=== PATIENT | female | born 1950 | race Caucasian/White ===

== ENCOUNTER 2018-03-09 06:01 | Inpatient (IN) | payer OTHER, SELFPAY ==
[2018-02-27 09:47] VITALS: BMI 20.6
[2018-03-09] VITALS (15 sets, daily range): BP systolic 85–149; BP diastolic 47–82; PULSE 16–77; RESP 12–97; TEMP 36.2–37; O2SAT 94–100; BMI 20.6
--- NOTE | 2018-03-09 | DI.RAD.S_ITS ---
PROCEDURE: XR HIP W PEL IF DONE RT 2V INDICATIONS: total rt hip arthroplasty TECHNIQUE: Fluoroscopic images were obtained during an operative procedure and submitted for interpretation following the completion of the procedure. COMPARISON: None. FINDINGS: These fluoroscopic images were performed for intraoperative localization. On these images, right hip arthroplasty hardware is placed. No kevin intraoperative complication is seen. Please correlate with intraoperative findings. IMPRESSION: Normal intraoperative examination. Dictated by: Corey Lewis M.D. on 03/09/2018 at 10:33 Approved by: Corey Lewis M.D. on 03/09/2018 at 10:34
--- NOTE | 2018-03-09 06:00 | DI.RAD.S_ITS ---
PROCEDURE: XR HIP W PEL IF DONE RT 2V INDICATIONS: prosthesis placement TECHNIQUE: 2 view(s) of the hip acquired. COMPARISON: [facility], CR, XR PELVIS WITH LATERAL HIP RIGHT, 11/04/2017, 12:00. [facility], CR, XR HIP W PEL IF DONE RT 2V, 03/09/2018, 8:22. FINDINGS: Bones: Patient is status post right hip arthroplasty, with hardware components in expected positions. The hip joint appears congruent. The visualized bony structures appear intact. Soft tissues: Overlying postoperative changes are noted. No suspicious soft tissue densities. IMPRESSION: Right hip prosthesis in anatomic alignment. Dictated by: Alma Rojo M.D. on 03/09/2018 at 17:05 Approved by: Alma Rojo M.D. on 03/09/2018 at 17:06
[2018-03-09] MEDS: LACTATED RINGERS 1,000 ML 42 ML IV ×2 (06:55→11:09)
[2018-03-09] MEDS: VANCOMYCIN 1,000 MG/200 ML FROZ.PIGGY 200 MG IV (06:55)
[2018-03-09] MEDS: ACETAMINOPHEN 325 MG TABLET 975 MG PO ×3 (07:07→20:28)
[2018-03-09] MEDS: CELECOXIB 200 MG CAPSULE PO (07:08)
[2018-03-09] MEDS: PREGABALIN 75 MG CAPSULE PO (07:08)
[2018-03-09] MEDS: CEFAZOLIN 2 GM/100 ML FROZ.PIGGY IV ×3 (08:02→23:51)
--- NOTE | 2018-03-09 08:06 | PM.PREOP ---
Pre-operative Note Interval Note Pre-op Check: Yes History & Physical Reviewed by Physician and Yes Exam Performed Changes: No
--- NOTE | 2018-03-09 08:07 | PM.OP.1 ---
Operative Date/Time/Diagnoses Date of procedure: 03/09/18 Time of procedure: 10:41 Pre-op diagnosis: right hip oa Post-op diagnosis: same Procedure & Clinicians Procedure: right total hip arthroplasty Same procedure as scheduled: Yes Indications: severe right hip OA Surgeon: Yumiko Jerome Medical Artist: Logan Monroy Anesthesia Type: General and Spinal Operative Notes Findings: severe right hip OA, adequate stability Closure Type: primary Specimen(s): none sent Implants & Drains: jerome and nephew R3 50, anthology standard offset 6, -3 x 32 Estimated Blood Loss (mL): 250 Blood products transfused: none Procedure in detail: The patient was brought to the operating room. Patient was carefully positioned in the supine position. Time-out was performed and antibiotics were given. Anesthesia was induced. She was positioned in the on the table in order to allow hyperextension of the hip. Bilateral lower extremities were prepped and draped in a standard sterile fashion. An anterior right hip incision was made 1 fingerbreadth lateral to the anterior superior iliac spine and extended distally towards the greater trochanter. Dissection was carried out through skin and subcutaneous tissues. The skin and subcutaneous tissues were carefully injected with Lidocaine with epi. Superficial hemostasis was achieved. The fascia over the tensor fascia lalo was defined and incised with a knife. Two Allis clamps were used to grasp the fascia. Tensor fascia lalo was retracted laterally. A gelpi retractor was placed. Dissection was carried out down along the neck. The circumflex vessels were carefully identified and cauterized with the Aqua Mantis. There was good visualization of the femoral neck. A Cobra was placed superior to the neck and the gluteus fibers were carefully stripped from that superior aspect of the capsule. A 2nd retractor was placed along the inferior aspect of the neck. The rectus insertion along the capsule was partially released. A 3rd retractor that was then gently placed over the rim of the acetabulum under the rectus. Capsule was carefully incised and released from the intertrochanteric line circumferentially superior to the mid sagittal line and inferiorly to the mid sagittal line until the lesser trochanter was palpable. A tag stitch was placed both in the superior and inferior limb of the capsular insertion. Along the acetabulum capsule was also released up to the mid sagittal 12:00 position. A portion of the labrum was resected. A saw was used to perform an osteotomy at the level of the intertrochanteric line and the junction of the superior femoral neck leaving approximately 1 finger breath of residual inferior neck above the lesser trochanter. A 2nd cut was made along the femoral neck at the base of the head and a napkin ring of neck was removed. Corkscrew was placed in the femoral head and the head was removed without difficulty. Retractors were then repositioned around the acetabulum. Residual labrum was resected and additional osteophytes were removed. A reamer that was 4 mm below the templated size was placed by hand in the acetabulum and it was reamed to centralize the acetabulum. It was then reamed up to 2 under the templated size and fluoroscopy was brought in to confirm the position of the reaming and depth of reaming. I reamed 1 under the anticipated size and touched the rim with line to line reaming. A trial cup was placed and noted that it was appropriately sized and fluoroscopy confirmed position and depth. The component was open and inserted without difficulty fluoroscopic imaging was used to confirm that the cup had been adequately seated and was well positioned. A single screw was used to supplement fixation. Neutral poly trial liner was placed. The cup was tested and noted to be stable. Attention was then directed to the femur. The femur was gently hyperextended additional capsular release was performed as needed in order to allow adequate visualization of the proximal femur with elevation of the femur. Patient was placed in a hyperextended slightly abducted position with maximum external rotation. Box osteotome was used to check for any residual neck as well as sclerotic bone along the trochanter. [place] pepper was placed in the femur. Additional broaching was performed. Canal finder was used to determine the alignment of the canal and position. Size 1 broach was placed. The canal was then appropriately broached up to the templated size as long as there was adequate stability of the broach and serial advancement of the broach without excessive impingement. Specific attention was directed at avoiding varus attempting to direct the distal aspect of the broach more anteriorly and avoiding excessive anteversion. Trial reduction showed acceptable range of motion, good stability, no posterior impingement, rastafarian of leg length and appropriate lateral shuck. I also hyperflexed the hip and checked that there was no impingement anteriorly and there was good stability with flexion, abduction and internal rotation. Final neutral poly was placed without difficulty. Marcaine and Exparel were injected.. The stem was placed without difficulty. Repeat trial reduction and x-ray showed acceptable overall position, length, and no evidence of the femoral fracture. Final head was placed. Wound was meticulously irrigated with normal saline. The hip was reduced and additional Exparel and Marcaine were injected. The capsule was closed with interrupted nonabsorbable sutures. The fascia of the tensor was closed with interrupted and running Vicryl. No drain was placed. Any tensor fascia lalo muscle that appeared to be contused or injured which was a minimal amount was carefully resected. Capsule around the tensor was injected with Exparel and Marcaine. The skin was closed with barbed stitches for the subcutaneous tissue and skin. We also used surgical glue. The wound was dressed sterilely. Brief Betadine soak was also used and was meticulously irrigated with normal saline. Patient was transferred to recovery room in satisfactory condition. Complications: none Condition: stable Disposition: Acute Care Plan for aftercare: The patient will be maintained on a standard total hip replacement protocol with weight bearing as tolerated and anterior hip precautions. The patient will receive Aspirin and sequential compression devices for DVT prophylaxis. The patient will be discharged home when safe for the home environment.
[2018-03-09] MEDS: BUPIVACAINE 0.25% W/ EPI VIAL 50 ML INJ (08:55)
[2018-03-09] MEDS: LIDOCAINE 1% W/EPI INJ 20 ML INJ (08:56)
[2018-03-09] MEDS: BUPIVACAINE LIPOSOME 266 MG/20 ML VIAL INJ (08:57)
--- NOTE | 2018-03-09 08:58 | SUR.OPER ---
Supine, head on pillow, torso on pink pad positioner. Iliac crest at flex of foot end of table. Gel roll under operative hip. Both arms secured on arm boards <90 degrees abduction.
[2018-03-09] MEDS: LACTATED RINGERS 1,000 ML 125 ML IV ×2 (13:23→21:31)
--- NOTE | 2018-03-09 15:00 | PT.IIE ---
Current Diagnoses Unilateral post-traumatic osteoarthritis, right hip (03/09/18) Pain in right hip (03/09/18) Surgery Performed Operation Date: 03/09/18 07:45 Actual Procedures p Total Hip Arthroplasty/Anterior Approach(Right) - Yumiko Manzano MD Surgical History (Last Updated 02/27/18 @ 10:06 by Shayy Chen, RN) History of bilateral tubal ligation (Acute) History of tonsillectomy (Acute) Medical History (Last Updated 02/27/18 @ 10:29 by Shayy Chen, RN) Graves disease (Acute) Hip pain, right (Acute) Hyperthyroidism (Acute) Murmur (Acute) Post menopausal problems (Acute) Primary localized osteoarthrosis of pelvic region (Acute) Psoriasis (Acute) Physical Therapy Inpatient Evaluation/Re-Eval M1 PT/OT-IP Prior Functional Status Start: 03/09/18 17:13 Freq: NEEDED Status: Active Protocol: Document 03/09/18 15:00 AB (Rec: 03/09/18 17:25 AB [id number]) Medical Review Prior Functional Status Medical History Reviewed Yes Communication able to make needs known Mobility and Gait stated that she is indpeendent with all moilities and ambulation wihtout AD indoors but uses a walking stick for outdoor mobility Social History Household Members spouse Living Arrangements House Number of Floors (Floors) One Floor Number of Stairs To Enter/Railing? 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 PT-IP Current Condition Start: 03/09/18 17:13 Freq: NEEDED Status: Active Protocol: Document 03/09/18 15:00 AB (Rec: 03/09/18 17:25 AB [id number]) Physical Therapy Current Condition Current Condition Evaluation Date 03/09/18 Treatment Diagnosis s/p R ALYSSA anterior approach Onset Date 03/09/18 Precautions Anterior Hip Precautions No Hip Extension No Hip External Rotation Weight Bearing Status Weight Bearing Status Weight Bear as Tolerated M3 PT-IP Subjective Start: 03/09/18 17:13 Freq: NEEDED Status: Active Protocol: Document 03/09/18 15:00 AB (Rec: 03/09/18 17:25 AB [id number]) Subjective Physical Therapy Visit Type Type Initial Evaluation Visit Start Time 15:00 Visit Stop Time 16:07 Total Visit Minutes 67 Number of SAMPLER PICKUP Visits 0 Physical Therapy Visit Comments Patient Comments pt agreeable to do PT Therapy Pain Assessment Pain When Pain Assessed At Rest Pain Present Pain Present Pain Reported Location Right Hip Intensity 2 Scale Used Numeric (1 - 10) Description Throbbing Pain Management Techniques Apply Cold Re-positioning M4 PT-IP Mobility and Gait Start: 03/09/18 17:13 Freq: NEEDED Status: Active Protocol: Document 03/09/18 15:00 AB (Rec: 03/09/18 17:25 AB [id number]) PT-Bed Mobility Assessment Supine to Sit Supine to Sit Standby Assistance Sit to Supine Sit to Supine Minimal Assistance PT-Transfer Assessment Sit to and From Stand Sit to and from Stand Contact Guard Assistance Equipment Transfer Assistive Device Gait Belt Front Wheeled Walker Orthotic/Prosthetic Devices or Brace: No Transfers Transfer Destination Toilet Transfer Technique pt ambulated from bed to the toilet using FWW Transfer Ability Level of Assist Contact Guard Assistance Gait Assessment Gait Gait Assistance Required: Contact Guard Assist Distance (Feet) 10 Able to Maintain Weight Bearing Status Yes During Gait Assistive Devices Assistive Device Gait Belt Front Wheeled Walker Factors Limiting Gait Function Factors Limiting Gait Function Decreased Activity Tolerance Decreased Strength Limited Range of Motion Pain Poor Balance Comments Gait Comments pt ambulated 10 ft x 2 using FWW CGA. pt with c/o dizziness limiting activity. BP prior to tx sesison: 104/59 BP sitting on chair after ambulation: 94/70 PT-Balance Assessment Sitting Balance and Reactions Static Sitting Balance Ability Good Dynamic Sitting Balance Ability Good Standing Balance and Reactions Static Standing Balance Ability Fair Dynamic Standing Balance Ability Fair Device Used FWW M5 PT-IP Objective Assessments Start: 03/09/18 17:13 Freq: NEEDED Status: Active Protocol: Document 03/09/18 15:00 AB (Rec: 03/09/18 17:25 AB [id number]) Orientation Orientation/Cognition Level of Alertness Alert Orientation Name Age Birthday Month Date Year Day of Week Place Situation Safety Awareness Understands Safety Issues Memory Description Short Term Impaired Gross Range of Motion Lower Extremity ROM Assessment Within Functional Limits Strength Lower Extremity Strength Assessment Right Impaired Hip 3+/5 Knee 4-/5 Sensation Assessment Sensation Gross Sensation WNL Muscle Tone Muscle Tone WNL Yes M6 PT-IP Treatment Start: 03/09/18 17:13 Freq: NEEDED Status: Active Protocol: Document 03/09/18 15:00 AB (Rec: 03/09/18 17:25 AB [id number]) Physical Therapy Treatment Exercises Exercises Ankle Pumps Education Education Provided Precautions Weight Bearing Status Post-Op Packet Safety M7 PT-IP Assessment and Plan Start: 03/09/18 17:13 Freq: NEEDED Status: Active Protocol: Document 03/09/18 15:00 AB (Rec: 03/09/18 17:25 AB [id number]) PT Summary Assessment and Plan Potential Rehabilitation Potential Good Status of Condition at Evaluation Stable Summary Impairments Pain ROM Strength Balance Coordination Sensation Bed Mobility Transfers Gait Activity Tolerance Assessment Summary pt requiring CGA with transfers and ambulation. pt plans to go home with spouse to assist her. caregiver training will be conducted as well as stair climbing training prior to d/c. pt stated that she is set up for outpt PT. Goals Bed Mobility Goal Standby Assistance Transfer Goal Standby Assistance Front Wheeled Walker Gait Goal Standby Assistance Front Wheel Walker Gait Distance 150 Days to Meet Goals 3 Frequency of Treatment Frequency Of Treatment Twice a Day Treatment Plan Physical Therapy Treatment Plan Bed Mobility Training Transfer Training Gait Training Therapeutic Exercise Balance Retraining Post Op Education Discharge Planning Hot or Cold Pack Neuromuscular Re-ed Coordination Retraining Manual Therapy Recommendations To Nursing Amount of Assist Needed 1 Person Assist Discharge Recommendations PT Discharge Recommendations Home with Assistance Outpatient PT
[2018-03-09] MEDS: ONDANSETRON 4 MG/2 ML INJ IV (16:49)
[2018-03-09] MEDS: ASPIRIN EC 81 MG TABLET PO (20:28)
--- NOTE | 2018-03-10 | PC.NURSE ---
Addendum entered by Aliya Valentine R.N. 03/10/18 06:23: States pain is currently throbbing with severity of 5/10 after being up to bathroom. Did not want to take Oxycodone or Ibuprofen so medicated with scheduled 0900 Tylenol and ice applied to hip. Original Note: Patient is alert and oriented. Breath sounds diminished but CTA with RA sat of 97%. HRR. Denies nausea (earlier nausea/emesis resolved). BT present and states she already had BM since return from surgery. Denies dysuria, frequency, urgency or incontinence. Dressing to anterior right hip is CDI. Ice pack applied for comfort. Patient denies any current pain. CMS is intact. Wearing bilateral SCD's. Fall risk score is moderate; bed alarm on for night.
[2018-03-10] MEDS: OXYCODONE IR 5 MG TABLET PO ×2 (01:09→10:37)
[2018-03-10 05:44] LABS: Hematocrit 29.8 % (36-46); Hemoglobin 10.4 g/dL (12.0-16.0)
[2018-03-10 05:50] VITALS: BP 107/58; PULSE 73; RESP 16; TEMP 36.7; O2SAT 99
[2018-03-10] MEDS: ACETAMINOPHEN 325 MG TABLET 975 MG PO (06:21)
--- NOTE | 2018-03-10 07:35 | PM.DS.1 ---
History of Present Illness Date Patient Seen: 03/10/18 Chief complaint: total hip arthroplasty right [id number] Narrative: Patient was seen bedside status post right anterior total hip arthroplasty postop day 1. Patient is doing well, her pain is well controlled and she has been up and moving with physical therapy already. She is ready to go home. Discharge Providers Date of admission: 03/09/18 06:01 Consults: 03/09/18 12:40 Consult to Discharge Planning Routine Comment: Consult to Physical Therapy Evaluate & Treat Comment: anterior Physician Instructions: post op ALYSSA protocol Consult to Respiratory Therapy Evaluate & Treat Comment: Physician Instructions: Evaluate and treat Discharge provider: Adeola Jennings PA-C Summary Discharge Diagnosis: Right hip osteoarthritis Hospital Course: Patient was admitted to the hospital status post right anterior hip arthroplasty on 03/09/2018. Patient tolerated procedure well with no major complications. Patient was transferred to the acute care floor. The patient was seen by Physical therapy who recommend patient be discharged home with outpatient PT. Patient stable ready for discharge on 03/10/2018. Status at Discharge Cognitive/behavioral status at discharge: Alert oriented x4 Functional status at discharge: uses cane/walker Overall status at discharge: patient is progressing back to baseline Time Spent with Patient Less than 30 minutes Exam Vital Signs (past 8 hours): - 03/09/18 23:45 03/10/18 05:50 Temperature 98.1 F 98.0 F Pulse Rate 74 73 Respiratory Rate 16 16 Blood Pressure 133/63 107/58 L Pulse Oximetry 97 99 Fraction of Inspired Oxygen 21 Oxygen Delivery Method Room Air Oxygen Flow Rate 0 Narrative Exam Narrative: Well-developed well-nourished in no acute distress. Alert and oriented x3. Examination surgical dressing is clean dry and intact she is neurovascularly intact in the right lower extremity. She has full range of motion of the knee and ankle. Calf is soft and compressible. Objective Labs Result Diagrams: 03/10/18 05:24 Labs: Laboratory Results - last 24 hr 03/10/18 05:24 Hgb 10.4 L Hct 29.8 L Discharge Plan Discharge Plan Patient Disposition: Home Discharge Med Rec/Prescriptions Prescriptions: New acetaminophen 325 mg Tablet 975 mg PO TID Qty: 0 RF: 0 aspirin 81 mg Tablet,Delayed Release (Dr/Ec) 81 mg PO BID Qty: 0 RF: 0 docusate sodium 100 mg Capsule 100 mg PO BID Qty: 0 RF: 0 oxycodone 5 mg Tablet 5 mg PO Q4H PRN (Reason: Pain, Moderate (4-6)) Qty: 0 RF: 0 Continue methimazole [Tapazole] 5 mg Tablet 2.5 mg PO DAILY RF: 0 Provider Discharge Instructions Diet: Diet as Tolerated Activity: WBAT, follow anterior hip precautions, use walker until cleared by PT Cold/Heat Therapy: Apply ice at least 20 minutes at a time hourly while awake Skin/Wound/Dressing Care Report to your healthcare provider any signs of infection, such as:: chills, fever, night sweats, increased pain and unusual drainage Dressing: Keep dressing clean, dry, and intact. May shower but no soaking the incision. Visit Report/Discharge Packet Instructions: DI for Hip Replacement, Oxycodone Visit Report Forms: Stroke Signs & Symptoms Discharge Data Attending Provider: Yumiko Manzano Admit Date/Time: 03/09/18 06:01 Discharges patient from system. Discharge Date/Time: 03/10/18 11:01
[2018-03-10 08:34] VITALS: BP 108/63; PULSE 70; RESP 16; TEMP 36.5; O2SAT 99
[2018-03-10] MEDS: methIMAzole 5 MG TABLET 2.5 MG PO (09:49)
[2018-03-10] MEDS: IBUPROFEN 600 MG TABLET PO (09:49)
[2018-03-10] MEDS: ASPIRIN EC 81 MG TABLET PO (09:49)
[2018-03-10] MEDS: DOCUSATE 100 MG CAPSULE PO (09:49)
--- NOTE | 2018-03-10 10:40 | PT.IPTN ---
Current Diagnoses Unilateral post-traumatic osteoarthritis, right hip (03/09/18) Pain in right hip (03/09/18) Surgery Performed Operation Date: 03/09/18 07:45 Actual Procedures p Total Hip Arthroplasty/Anterior Approach(Right) - Yumiko Manzano MD Physical Therapy Treatment Note M2 PT-IP Current Condition Start: 03/09/18 17:13 Freq: NEEDED Status: Discharge Protocol: Document 03/09/18 15:00 AB (Rec: 03/09/18 17:25 AB [id number]) Physical Therapy Current Condition Current Condition Evaluation Date 03/09/18 Treatment Diagnosis s/p R ALYSSA anterior approach Onset Date 03/09/18 Precautions Anterior Hip Precautions No Hip Extension No Hip External Rotation Weight Bearing Status Weight Bearing Status Weight Bear as Tolerated M3 PT-IP Subjective Start: 03/09/18 17:13 Freq: NEEDED Status: Discharge Protocol: Document 03/10/18 10:40 GGD (Rec: 03/10/18 12:49 GGD [id number]) Subjective Physical Therapy Visit Type Type Treatment Note Visit Start Time 10:05 Visit Stop Time 10:35 Total Visit Minutes 30 Number of FENCE INSTALLER FOREMAN Visits 1 Physical Therapy Visit Comments Patient Comments Pt states that she feels ready to go home after stairs. Therapy Pain Assessment Pain When Pain Assessed At Rest Pain Present Pain Present Pain Reported Location Right Hip Intensity 1 Scale Used Numeric (1 - 10) Description Throbbing M4 PT-IP Mobility and Gait Start: 03/09/18 17:13 Freq: NEEDED Status: Discharge Protocol: Document 03/10/18 10:40 GGD (Rec: 03/10/18 12:49 GGD [id number]) PT-Transfer Assessment Sit to and From Stand Sit to and from Stand Contact Guard Assistance Equipment Transfer Assistive Device Gait Belt Front Wheeled Walker Orthotic/Prosthetic Devices or Brace: No Transfers Transfer Destination Toilet Wheelchair Gait Assessment Gait Gait Assistance Required: Contact Guard Assist Distance (Feet) 100 Able to Maintain Weight Bearing Status Yes During Gait Assistive Devices Assistive Device Gait Belt Front Wheeled Walker Factors Limiting Gait Function Factors Limiting Gait Function Decreased Activity Tolerance Decreased Strength Limited Range of Motion Pain Poor Balance Comments Gait Comments Pt need cues for hip precautions with turns and gait. Stair Climbing Assessment Evaluation Level of Assist On Stairs Contact Guard Assistance Devices Stair Climbing Assistive Devices Small Base Quad Cane Technique/Endurance Stair Climbing Direction Ascend and Descend Stair Climbing Technique Step to Step Number of Steps Climbed 3 Query Text: Stair Climbing Set # Repetitions (reps) 1 M5 PT-IP Objective Assessments Start: 03/09/18 17:13 Freq: NEEDED Status: Discharge Protocol: Document 03/09/18 15:00 AB (Rec: 03/09/18 17:25 AB [id number]) Orientation Orientation/Cognition Level of Alertness Alert Orientation Name Age Birthday Month Date Year Day of Week Place Situation Safety Awareness Understands Safety Issues Memory Description Short Term Impaired Gross Range of Motion Lower Extremity ROM Assessment Within Functional Limits Strength Lower Extremity Strength Assessment Right Impaired Hip 3+/5 Knee 4-/5 Sensation Assessment Sensation Gross Sensation WNL Muscle Tone Muscle Tone WNL Yes M6 PT-IP Treatment Start: 03/09/18 17:13 Freq: NEEDED Status: Discharge Protocol: Document 03/10/18 10:40 GGD (Rec: 03/10/18 12:49 GGD [id number]) Physical Therapy Treatment Exercises Exercises Ankle Pumps Gluteal Sets Quad Sets Heel Slides Supine Hip Abduction Education Education Provided Precautions M7 PT-IP Assessment and Plan Start: 03/09/18 17:13 Freq: NEEDED Status: Discharge Protocol: Document 03/10/18 10:40 GGD (Rec: 03/10/18 12:49 GGD [id number]) PT Summary Assessment and Plan Summary Assessment Summary Pt improving with mobility and gait. She had good pain control with weight bearing. She did need cues for hip precautions wiht gait and cues for safe stair ambulation. Frequency of Treatment Frequency Of Treatment Twice a Day Treatment Plan Physical Therapy Treatment Plan Bed Mobility Training Transfer Training Gait Training Therapeutic Exercise Balance Retraining Post Op Education Discharge Planning Hot or Cold Pack Neuromuscular Re-ed Coordination Retraining Manual Therapy Recommendations To Nursing Amount of Assist Needed 1 Person Assist Discharge Recommendations PT Discharge Recommendations Home with Assistance Outpatient PT
--- NOTE | 2018-03-10 10:58 | PC.NURSE ---
Day shift: Pt left unit in w/ [employer]IST Cindi and Pt's spouse to private car. They have ferry pass. Pt medicated for pain just prior to leaving. Paperwork signed and all questions answered. Pt has all personal belongings. FU appointment has been scheduled.
--- NOTE | 2018-03-11 11:17 | CM.IDA ---
Late Entry: No availability to see pt before she left the medical floor for home. All aware and agreeable to pt's DC plan: home w/spouse and outpt f/u. Pt left the floor at 1100 yesterday in order to catch her ferry. JW
== END 2018-03-10 11:01 | disposition home or self-care (01) | DRG 470 ==
PROVIDERS: Admitting Provider Orthopaedic Surgery; Visit Provider Orthopaedic Surgery
PROC: 0SR902Z Replacement of Right Hip Joint with Metal on Polyethylene Synthetic Substitute, Open Approach (ICD-10-PCS; CPT 27130; principal; 2018-03-09 07:45)
DX: M16.51 Unilateral post-traumatic osteoarthritis, right hip (principal); E05.00 Thyrotoxicosis with diffuse goiter without thyrotoxic crisis or storm; M81.0 Age-related osteoporosis without current pathological fracture; Z87.891 Personal history of nicotine dependence
CPT/HCPCS: 36415; 73502; 76001; 85014; 85018; 94760; 97116; 97161; 97530; C1776; C9290; J0690; J2250; J2405; J2704; J3010; J3370

== ENCOUNTER → 2020-11-06 11:29 | Outpatient (CLI) | payer MEDICARE, SELFPAY ==
[2018-03-09 06:52] VITALS: BMI 20.6
[2020-11-06 19:19] LABS: Thyroid Stimulating Hormone 2.09 uIU/mL (0.47-4.68)
== END ==
PROVIDERS: PCP Family Medicine; Visit Provider Family Medicine
DX: E03.9 Hypothyroidism, unspecified (principal)
CPT/HCPCS: 84443

== ENCOUNTER → 2021-03-13 08:34 | Outpatient (CLI) | payer MEDICARE, SELFPAY ==
[2018-03-09 06:52] VITALS: BMI 20.6
[2021-03-13 20:11] LABS: Add Manual Diff / Slide Review NO; Basophils Absolute Auto 0 /uL (0-100); Basophils Percent Auto 0.9 % (0-2); Eosinophils Absolute Auto 100 /uL (0-450); Eosinophils Percent Auto 1.4 % (2-4); Hematocrit 41.2 % (36-46); Hemoglobin 13.6 g/dL (12.0-16.0); Lymphocytes Absolute Auto 1800 /uL (1100-4500); Lymphocytes Percent Auto 38.6 % (25-40); Mean Corpuscular HGB Conc 32.9 % (30-36); Mean Corpuscular Hemoglobin 28.9 PG (26-34); Mean Corpuscular Volume 87.7 fL (80-100); Monocytes Absolute Auto 400 /uL (0-900); Neutrophils Absolute Auto 2300 /uL (1500-7000); Neutrophils Percent Auto 50.1 % (50-75); Platelet Count 229 X10^3/uL (150-400); Red Cell Distribution Width 14.2 % (11.6-14.8); White Blood Cell Count 4.6 X10^3/uL (4.5-11.0)
[2021-03-13 20:18] LABS: Alanine Aminotransferase 23 IU/L (<35); Albumin 4.1 g/dL (3.5-5.0); Albumin Globulin Ratio 1.4 (1.0-2.8); Alkaline Phosphatase 73 U/L (38-126); Aspartate Aminotransferase 27 IU/L (14-36); BUN Creatinine Ratio 24.4 (6-22); Bilirubin Total 0.4 mg/dL (0.2-1.3); Blood Urea Nitrogen 21 mg/dL (7-17); Calcium 10.3 mg/dL (8.4-10.2); Carbon Dioxide 32 mmol/L (22-32); Chloride 103 mmol/L (98-107); Estimated Glomerular Filt Rate > 60.0 mL/min (>60); Glucose 97 mg/dL (80-110); HEMOLYSIS < 15 (0-50); Potassium 4.3 mmol/L (3.4-5.1); Sodium 139 mmol/L (137-145); Total Protein 7.1 g/dL (6.3-8.2)
[2021-03-13 20:46] LABS: Thyroid Stimulating Hormone 1.52 uIU/mL (0.47-4.68)
== END ==
PROVIDERS: PCP Family Medicine; Visit Provider Family Medicine
DX: E03.9 Hypothyroidism, unspecified (principal); E05.00 Thyrotoxicosis with diffuse goiter without thyrotoxic crisis or storm; J30.2 Other seasonal allergic rhinitis; M71.22 Synovial cyst of popliteal space [Baker], left knee
CPT/HCPCS: 80053; 84443; 85025

== ENCOUNTER → 2021-04-13 11:06 | Outpatient (CLI) | payer MEDICARE, SELFPAY ==
[2018-03-09 06:52] VITALS: BMI 20.6
[2021-04-13 19:08] LABS: Alanine Aminotransferase 25 IU/L (<35); Albumin 4.3 g/dL (3.5-5.0); Albumin Globulin Ratio 1.5 (1.0-2.8); Alkaline Phosphatase 75 U/L (38-126); Aspartate Aminotransferase 31 IU/L (14-36); Bilirubin Total 0.5 mg/dL (0.2-1.3); Blood Urea Nitrogen 15 mg/dL (7-17); Calcium 10.6 mg/dL (8.4-10.2); Carbon Dioxide 30 mmol/L (22-32); Chloride 102 mmol/L (98-107); Estimated Glomerular Filt Rate > 60.0 mL/min (>60); Globulin 2.8 g/dL (1.7-4.1); Glucose 87 mg/dL (80-110); HEMOLYSIS < 15 (0-50); Potassium 4.7 mmol/L (3.4-5.1); Sodium 137 mmol/L (137-145); Total Protein 7.1 g/dL (6.3-8.2)
== END ==
PROVIDERS: PCP Family Medicine; Visit Provider Family Medicine
DX: E86.0 Dehydration (principal)
CPT/HCPCS: 80053

== ENCOUNTER → 2021-08-19 09:38 | Outpatient (CLI) | payer MEDICARE, SELFPAY ==
[2018-03-09 06:52] VITALS: BMI 20.6
[2021-08-19 19:28] LABS: Alanine Aminotransferase 25 IU/L (<35); Albumin 4.1 g/dL (3.5-5.0); Albumin Globulin Ratio 1.5 (1.0-2.8); Alkaline Phosphatase 67 U/L (38-126); Aspartate Aminotransferase 29 IU/L (14-36); BUN Creatinine Ratio 21.8 (6-22); Bilirubin Total 0.5 mg/dL (0.2-1.3); Blood Urea Nitrogen 17 mg/dL (7-17); Calcium 10.3 mg/dL (8.4-10.2); Carbon Dioxide 32 mmol/L (22-32); Chloride 106 mmol/L (98-107); Estimated Glomerular Filt Rate > 60.0 mL/min (>60); Globulin 2.8 g/dL (1.7-4.1); Glucose 94 mg/dL (80-110); HEMOLYSIS < 15 (0-50); Potassium 4.2 mmol/L (3.4-5.1); Sodium 138 mmol/L (137-145); Total Protein 6.9 g/dL (6.3-8.2)
== END ==
PROVIDERS: PCP Family Medicine; Visit Provider Family Medicine
DX: E86.0 Dehydration (principal)
CPT/HCPCS: 80053

== ENCOUNTER → 2022-08-12 10:31 | Outpatient (CLI) | payer MEDICARE, SELFPAY ==
[2018-03-09 06:52] VITALS: BMI 20.6
[2022-08-12 20:30] LABS: Cholesterol 194 mg/dL (140-199); Glucose 87 mg/dL (80-110); HDL Cholesterol 101 mg/dL (40-60); LDL Cholesterol Calculated 71 mg/dL (<100); Triglycerides 108 mg/dL (35-150)
[2022-08-12 21:24] LABS: Hep C Virus Ab w/Reflex Quant NEGATIVE s/c (NEGATIVE)
== END ==
PROVIDERS: PCP Family Medicine; Visit Provider Family Medicine
DX: E03.9 Hypothyroidism, unspecified (principal); Z13.1 Encounter for screening for diabetes mellitus; Z13.220 Encounter for screening for lipoid disorders; Z11.59 Encounter for screening for other viral diseases
CPT/HCPCS: 80061; 82947; 86803

== ENCOUNTER → 2022-12-27 12:45 | Outpatient (CLI) | payer MEDICARE, SELFPAY ==
[2018-03-09 06:52] VITALS: BMI 20.6
[2022-12-27 20:29] LABS: TSH w/ Reflex to FT4 0.36 uIU/mL (0.47-4.68)
[2022-12-27 20:59] LABS: Free T4, Direct Thyroxine 1.24 ng/dL (0.78-2.19)
== END ==
PROVIDERS: PCP Family Medicine; Visit Provider Family Medicine
DX: E03.9 Hypothyroidism, unspecified (principal); E05.00 Thyrotoxicosis with diffuse goiter without thyrotoxic crisis or storm
CPT/HCPCS: 84439; 84443

== ENCOUNTER → 2023-07-14 11:35 | Outpatient (CLI) | payer MEDICARE, SELFPAY ==
[2018-03-09 06:52] VITALS: BMI 20.6
[2023-07-14 21:42] LABS: Add Manual Diff / Slide Review NO; Basophils Absolute Auto 0 /uL (0-100); Basophils Percent Auto 0.7 % (0-2); Eosinophils Absolute Auto 0 /uL (0-450); Eosinophils Percent Auto 0.9 % (2-4); Hematocrit 40.9 % (36-46); Hemoglobin 13.7 g/dL (12.0-16.0); Lymphocytes Absolute Auto 1500 /uL (1100-4500); Lymphocytes Percent Auto 35.2 % (25-40); Mean Corpuscular HGB Conc 33.6 % (30-36); Mean Corpuscular Hemoglobin 29.1 PG (26-34); Mean Corpuscular Volume 86.5 fL (80-100); Monocytes Absolute Auto 400 /uL (0-900); Monocytes Percent Auto 9.3 % (3-14); Neutrophils Absolute Auto 2300 /uL (1500-7000); Neutrophils Percent Auto 53.9 % (50-75); Platelet Count 237 X10^3/uL (150-400); Red Blood Cell Count 4.73 X10^6/uL (4.0-5.2); Red Cell Distribution Width 14.3 % (11.6-14.8); White Blood Cell Count 4.3 X10^3/uL (4.5-11.0)
[2023-07-14 21:46] LABS: BUN Creatinine Ratio 29.9 (6-22); Blood Urea Nitrogen 23 mg/dL (7-17); Calcium 10.5 mg/dL (8.4-10.2); Carbon Dioxide 28 mmol/L (22-32); Chloride 102 mmol/L (98-107); Cholesterol 193 mg/dL (140-199); Estimated Glomerular Filt Rate > 60 mL/min (>60); Glucose 94 mg/dL (80-110); HDL Cholesterol 95 mg/dL (40-60); HEMOLYSIS < 15 (0-50); LDL Cholesterol Calculated 82 mg/dL (<100); Potassium 4.3 mmol/L (3.4-5.1); Sodium 138 mmol/L (137-145); Triglycerides 78 mg/dL (35-150)
[2023-07-14 23:21] LABS: TSH w/ Reflex to FT4 2.03 uIU/mL (0.47-4.68)
== END ==
PROVIDERS: PCP Family Medicine; Visit Provider Family Medicine
DX: Z13.6 Encounter for screening for cardiovascular disorders (principal); E05.00 Thyrotoxicosis with diffuse goiter without thyrotoxic crisis or storm; Z13.220 Encounter for screening for lipoid disorders; M81.0 Age-related osteoporosis without current pathological fracture; E03.9 Hypothyroidism, unspecified
CPT/HCPCS: 80048; 80061; 84443; 85025

== ENCOUNTER → 2023-08-18 13:50 | Outpatient (CLI) | payer MEDICARE, SELFPAY ==
[2018-03-09 06:52] VITALS: BMI 20.6
[2023-08-18 23:21] LABS: TSH w/ Reflex to FT4 1.26 uIU/mL (0.47-4.68)
[2023-08-21 08:38] LABS: Calcium 10.1 mg/dL (8.7-10.3); Parathyroid Hormone, Intact 75 pg/mL (15-65)
== END ==
PROVIDERS: PCP Family Medicine; Visit Provider Family Medicine
DX: E03.9 Hypothyroidism, unspecified (principal); E83.52 Hypercalcemia; E05.00 Thyrotoxicosis with diffuse goiter without thyrotoxic crisis or storm
CPT/HCPCS: 82306; 82310; 83970; 84156; 84166; 84443

== ENCOUNTER → 2024-04-23 14:07 | Outpatient (CLI) | payer MEDICARE, SELFPAY ==
[2018-03-09 06:52] VITALS: BMI 20.6
--- NOTE | 2024-04-23 14:42 | EKG_ITS ---
[facility] [address] [place] [address] Test Date: 2024-04-23 Pat Name: Lila Zhou Department: [facility] Room: Gender: Female Compliance Clerk: MILES : 1950 Requested By: Order Number: [id number] Reading MD: Juan De Oliveira MD Measurements Intervals [place] Rate: 84 P: 66 [place]: 122 QRS: 23 QRSD: 78 T: 33 QT: 350 QTc: 413 Interpretive Statements Normal sinus rhythm Possible Left atrial enlargement Nonspecific ST and T wave abnormality NO PRIOR TRACING Electronically Signed On 04-24-2024 7:19:59 PST by Juan De Oliveira MD
[2024-04-23 14:50] LABS: Add Manual Diff / Slide Review NO; Basophils Absolute Auto 0 /uL (0-100); Basophils Percent Auto 0.4 % (0-2); Eosinophils Absolute Auto 0 /uL (0-450); Eosinophils Percent Auto 0.9 % (2-4); Hematocrit 38.5 % (36-46); Hemoglobin 12.7 g/dL (12.0-16.0); Lymphocytes Absolute Auto 2000 /uL (1100-4500); Lymphocytes Percent Auto 38.9 % (25-40); Mean Corpuscular HGB Conc 32.9 % (30-36); Mean Corpuscular Hemoglobin 27.8 PG (26-34); Mean Corpuscular Volume 84.6 fL (80-100); Monocytes Absolute Auto 500 /uL (0-900); Monocytes Percent Auto 9.6 % (3-14); Neutrophils Absolute Auto 2500 /uL (1500-7000); Neutrophils Percent Auto 50.2 % (50-75); Platelet Count 267 X10^3/uL (150-400); Red Blood Cell Count 4.55 X10^6/uL (4.0-5.2); Red Cell Distribution Width 13.1 % (11.6-14.8)
[2024-04-23 14:56] LABS: Appearance Urine UA CLEAR; Bilirubin Urine UA NEGATIVE (NEGATIVE); Color Urine UA YELLOW; Glucose Urine UA NEGATIVE (Negative); Ketones Urine UA NEGATIVE (NEGATIVE); Leukocyte Esterase Urine UA NEGATIVE (NEGATIVE); Nitrite Urine UA NEGATIVE (Negative); Occult Blood Urine UA NEGATIVE (Negative); Protein Urine UA NEGATIVE (Negative); Specific Gravity Urine UA <=1.005 (1.000-1.035); Urobilinogen Urine UA 0.2 E.U./dL (0.2)
[2024-04-23 15:04] LABS: Bacteria Urine Occasional (0-1); Culture Indicated Urine Cult Not Indicated; RBC Urine 0-1/HPF (0-5/HPF); Squamous Epithelial Cell Urine 0-1 /HPF (0-5/HPF); Urine Volume 10mL (spun); WBC Urine 0-1/HPF (0-5/HPF)
[2024-04-23 15:08] LABS: BUN Creatinine Ratio 27.4 (6-22); Blood Urea Nitrogen 20 mg/dL (7-17); Calcium 10.4 mg/dL (8.4-10.2); Carbon Dioxide 27 mmol/L (22-32); Chloride 105 mmol/L (98-107); Estimated Glomerular Filt Rate > 60 mL/min (>60); Glucose 98 mg/dL (80-110); HEMOLYSIS < 15 (0-50); Potassium 4.1 mmol/L (3.4-5.1); Sodium 136 mmol/L (137-145)
[2024-04-23 15:11] LABS: Hemoglobin A1C% w Est Avg Glu 5.2 % (4.0-6.0)
== END ==
PROVIDERS: PCP Family Medicine; Referring Provider Orthopaedic Surgery; Visit Provider Orthopaedic Surgery
DX: Z01.818 Encounter for other preprocedural examination (principal); R73.9 Hyperglycemia, unspecified; Z01.812 Encounter for preprocedural laboratory examination; N39.0 Urinary tract infection, site not specified
CPT/HCPCS: 36415; 80048; 81001; 83036; 85025; 93005; 93010

== ENCOUNTER 2024-05-22 08:30 | Day surgery (SDC) | payer MEDICARE, SELFPAY ==
[2018-03-09 06:52] VITALS: BMI 20.6
[2024-05-09 12:30] VITALS: BMI 20.6
[2024-05-22] VITALS (13 sets, daily range): BP systolic 108–154; BP diastolic 61–75; PULSE 51–77; RESP 12–21; TEMP 35.7–37.2; O2SAT 96–100; BMI 19.9
--- NOTE | 2024-05-22 06:00 | DI.RAD.S_ITS ---
PROCEDURE: XR HIP W PEL IF DONE LT 2V INDICATIONS: mickey TECHNIQUE: 2 view(s) of the hip acquired. COMPARISON: [facility], CR, XR PELVIS WITH LATERAL HIP LEFT, 04/05/2024, 13:43. [facility], CR, [id number] W PEL IF PERFORMED, 05/22/2024, 11:52. FINDINGS: Bones: Patient is status post left hip arthroplasty, with hardware components in expected positions. The hip joint appears congruent. The visualized bony structures appear intact. Soft tissues: Overlying postoperative changes are noted. No suspicious soft tissue densities. IMPRESSION: Expected post-operative appearance of a hip arthroplasty. Dictated by: Marybel Gutiérrez M.D. on 05/22/2024 at 13:41 Approved by: Marybel Gutiérrez M.D. on 05/22/2024 at 13:42
[2024-05-22] MEDS: ACETAMINOPHEN 325 MG TABLET 975 MG PO (09:10)
[2024-05-22] MEDS: CELECOXIB 200 MG CAPSULE PO (09:10)
[2024-05-22] MEDS: LACTATED RINGERS 1,000 ML 42 ML IV (09:19)
[2024-05-22] MEDS: VANCOMYCIN 1,000 MG/200 ML PIGGYBACK 200 MG IV (10:13)
--- NOTE | 2024-05-22 10:39 | PM.PREOP ---
Pre-operative Note Interval Note History & Physical reviewed/Exam performed by Physician: Yes Changes to H&P: No
--- NOTE | 2024-05-22 10:40 | P.OP_ITS ---
Operative Date/Time/Diagnoses Date of procedure: 05/22/24 Time of procedure: 11:00 Pre-op diagnosis: Left hip OA Post-op diagnosis: same Procedure & Clinicians Procedure: Left total hip arthroplasty anterior approach Same procedure as scheduled: Yes Indications: The patient has had progressively worsening left hip pain with radiographic villegas ges consistent with arthritis. Non-operative management has failed and the patient has requested total hip replacement. The risks, benefits and alternatives to surgery were discussed with the patient prior to proceeding. Risks discussed included, but were not limited to, failure to relieve pain, leg length discrepancy, dislocation, stiffness, infection, nerve damage, deep venous thrombosis, pulmonary embolism, stroke, coma, heart attack, permanent paralysis and , as well as the potential need for eventual revision of the prosthetic. Surgeon: Yumiko Manzano Quantometer Operator: Logan Monroy Anesthesia Type: General and Spinal Operative Notes Findings: Severe left hip OA, good stability, adequate bone Closure Type: primary Specimen(s): none sent Prosthetic devices, grafts, tissues, transplants, or devices: Manzano and nephew R3 50, neutral poly liner,one 6.5 mm screw, anthology stem standard offset size 5, 36 by -3 Estimated Blood Loss (mL): 250 Procedure in detail: The patient was brought to the operating room. Patient was carefully positioned in the supine position. Time-out was performed and antibiotics were given. Anesthesia was induced. She was positioned in the on the table in order to allow hyperextension of the hip. The left lower extremity was prepped and draped in a standard sterile fashion. An anterior left hip incision was made 1 fingerbreadth lateral to the anterior superior iliac spine and extended distally towards the greater trochanter. Dissection was carried out through skin and subcutaneous tissues. Superficial hemostasis was achieved. The fascia over the tensor fascia lalo was defined and incised with a knife. Two Allis clamps were used to grasp the fascia. Tensor fascia lalo was retracted laterally. A gelpi retractor was placed. Dissection was carried out down along the neck. The circumflex vessels were carefully identified and cauterized with the Aqua Mantis. A PA was used during the procedure and was essential for intraoperative retraction and safe implantation of the components. There was good visualization of the femoral neck. A Cobra was placed superior to the neck and the gluteus fibers were carefully stripped from that superior aspect of the capsule. A 2nd retractor was placed along the inferior aspect of the neck. The rectus insertion along the capsule was partially released. A 3rd retractor that was then gently placed over the rim of the acetabulum under the rectus. Capsule was carefully incised and released from the intertrochanteric line circumferentially superior to the mid sagittal line and inferiorly to the mid sagittal line until the lesser trochanter was palpable. A tag stitch was placed both in the superior and inferior limb of the capsular insertion. Along the acetabulum capsule was also released up to the mid sagittal 12:00 position. A portion of the labrum was resected. A saw was used to perform an osteotomy at the level of the intertrochanteric line and the junction of the superior femoral neck leaving approximately 1 finger breath of residual inferior neck above the lesser trochanter. A 2nd cut was made along the femoral neck at the base of the head and a napkin ring of neck was removed. Corkscrew was placed in the femoral head and the head was removed without difficulty. Retractors were then repositioned around the acetabulum. Residual labrum was resected and additional osteophytes were removed. A reamer that was 4 mm below the templated size was placed by hand in the acetabulum and it was reamed to centralize the acetabulum. It was then reamed up to 2 under the templated size and fluoroscopy was brought in to confirm the position of the reaming and depth of reaming. I reamed 1 under the anticipated size. A trial cup was placed and noted that it was appropriately sized and fluoroscopy confirmed position and depth. The component was open and inserted without dif ficulty fluoroscopic imaging was used to confirm that the cup had been adequately seated and was well positioned. It was further stabilized with a single screw. Neutral poly liner was placed. The cup was tested and noted to be stable. Attention was then directed to the femur. The femur was gently hyperextended additional capsular release was performed as needed in order to allow adequate visualization of the proximal femur with elevation of the femur. Patient was placed in a hyperextended slightly adducted position with maximum external rotation. Box osteotome was used to check for any residual neck as well as sclerotic bone along the trochanter. Paoli pepper was placed in the femur. Additional broaching was performed. Canal finder was used to determine the alignment of the canal and position. Size 1 broach was placed. The canal was then appropriately broached up to the templated size as long as there was adequate stability of the broach and serial advancement of the broach without excessive impingement. Specific attention was directed at avoiding varus attempting to direct the distal aspect of the broach more anteriorly and avoiding excessive anteversion. Trial reduction showed acceptable range of motion, good stability, no posterior impingement, jain of leg length and appropriate lateral shuck. I also hyperflexed the hip and checked that there was no impingement anteriorly and there was good stability with flexion, adduction and internal rotation. Marcaine and Exparel 266 mg were injected. The stem was placed without difficulty. Repeat trial reduction and x-ray showed acceptable overall position, length, and no evidence of the femoral fracture. Final head was placed. Wound was meticulously irrigated with normal saline. The hip was reduced and additional Exparel and Marcaine were injected. The capsule was closed with interrupted nonabsorbable sutures. The fascia of the tensor was closed with interrupted and running Vicryl. No drain was placed. Any tensor fascia lalo muscle that appeared to be contused or injured which was a minimal amount was carefully resected. Capsule around the tensor was injected with Exparel and Marcaine. The skin was closed with barbed stitches for the subcutaneous tissue and skin. We also used surgical glue. The wound was dressed sterilely. Brief Betadine soak was also used and was meticulously irrigated with normal saline. Patient was transferred to recovery room in satisfactory condition. Complications: none Post-operative Condition: stable Disposition: Acute Care Plan for aftercare: The patient will be maintained on a standard total hip replacement protocol with weight bearing as tolerated and anterior hip precautions. The patient will receive Aspirin and sequential compression devices for DVT prophylaxis. The patient will be discharged home when safe for the home environment.
[2024-05-22] MEDS: CEFAZOLIN 2 GM/100 ML PREMIX 100 ML IV ×2 (10:50→20:19)
[2024-05-22] MEDS: TRANEXAMIC ACID 1,000 MG VIAL 2000 MG INJ ×2 (11:12→12:39)
--- NOTE | 2024-05-22 11:25 | SUR.OPER ---
Patient supine on padded [place] table, one arm on padded arm board at <90, other arm padded and secured with tape across patient's chest, both legs secured in padded traction boots and positioned per surgeon, padded post at patient's groin, pressure points checked and padded.
[2024-05-22] MEDS: BUPIVACAINE 0.25% (PF) 60 ML, EPINEPHrine 0.3 MG INJ (11:33)
[2024-05-22] MEDS: BUPIVACAINE LIPOSOME 266 MG/20 ML VIAL INJ (11:33)
--- NOTE | 2024-05-22 12:44 | DI.RAD.S_ITS ---
PROCEDURE: [id number] W PEL IF PERFORMED INDICATIONS: LEFT TOTAL HIP ARTHROPLASTY TECHNIQUE: AP pelvis with lateral view(s) of the left hip(s). COMPARISON: [facility] ([facility]), CR, XR HIP W PEL IF DONE LT 2V, 10/16/2021, 15:30. FINDINGS: Intra operative images demonstrating new left hip arthroplasty. There is good anatomic alignment and hardware appears intact. Unchanged right hip arthroplasty. IMPRESSION: Intraoperative left hip arthroplasty. Dictated by: Clarissa Spence M.D. on 05/22/2024 at 14:53 Approved by: Clarissa Spence M.D. on 05/22/2024 at 14:53
[2024-05-22] MEDS: LACTATED RINGERS 1,000 ML 100 ML IV ×2 (14:00→23:40)
--- NOTE | 2024-05-22 14:58 | OT.IPNOTE ---
Pt not ready yet after hip sx. Pt did not realize that she had an ice bag on her hip at this time. Able to reposition the ice to more medial positioin as laterally skin very cold on her left hip. To see pt first thing in the morning at 730AM tomorrow for OT medhat.
[2024-05-22] MEDS: ACETAMINOPHEN 325 MG TABLET 650 MG PO (16:40)
[2024-05-22] MEDS: DOCUSATE 100 MG CAPSULE PO (20:19)
[2024-05-22] MEDS: ASPIRIN EC 81 MG TABLET PO (20:19)
[2024-05-23 00:55] VITALS: BP 118/67; PULSE 78; RESP 18; TEMP 36.9; O2SAT 96
[2024-05-23] MEDS: ACETAMINOPHEN 325 MG TABLET 650 MG PO (03:50)
[2024-05-23] MEDS: CEFAZOLIN 2 GM/100 ML PREMIX 100 ML IV (04:29)
[2024-05-23 06:08] LABS: Hematocrit 32.3 % (36-46); Hemoglobin 10.9 g/dL (12.0-16.0)
--- NOTE | 2024-05-23 07:24 | OT.IP.EVAL ---
Current Diagnoses Unilateral primary osteoarthritis, left hip (05/22/24) Surgery Performed Operation Date: 05/22/24 10:45 Actual Procedures p Total Hip Arthroplasty/Anterior Approach(Left) - Yumiko Manzano MD Past Medical History (Last Updated 07/15/23 @ 06:50 by Serg Lewis MD) Graves disease Hip pain, right Hypercalcemia Hyperthyroidism Murmur Osteoporosis Other insect allergy status Post menopausal problems Post-traumatic osteoarthritis of right hip Primary hyperparathyroidism Primary localized osteoarthrosis of pelvic region Psoriasis Surgical History (Last Updated 05/09/24 @ 12:37 by Stormy Lemos RN) History of bilateral tubal ligation History of tonsillectomy History of total right hip arthroplasty (02/2018) Occupational Therapy Inpatient Evaluation/Re-Eval M1 PT/OT-IP Prior Functional Status Start: 05/23/24 08:00 Freq: NEEDED Status: Active Protocol: Document 05/23/24 08:04 [facility] (Rec: 05/23/24 08:12 [facility] [id number]) Medical Review Prior Functional Status Communication I Mobility and Gait I had pain but did not use a device. Activities of Daily Living and IADL's Able to do all ADL and IADL needs but had pain. Prior Functional Level (Other details) Pt able to stay on the main level and has a very supportive to be able to assist her. Social History Household Members spouse Living Arrangements House Number of Floors (Floors) Two Floors Number of Stairs To Enter/Railing? 3 steps with no rails. Home Environment Standard Height Toilet,Walk in Shower Home Equipment Straight Cane,Bedside Commode, Long Handled Shoe Horn,Finished Hardware Erector Additional Social History Comment Pt has a standard walker. M2 OT-IP Current Condition Start: 05/23/24 08:00 Freq: Status: Active Protocol: Document 05/23/24 08:04 [facility] (Rec: 05/23/24 08:12 [facility] [id number]) Occupational Therapy Current Condition Current Condition Evaluation Date 05/23/24 Treatment Diagnosis S/P L ALYSSA anterior approach Diagnosis Onset Date 05/22/24 Post Operative Precautions Other Precautions NO hypertension and excessive movement for hip external rotation. M3 OT- IP Subjective and Pain Start: 05/23/24 08:00 Freq: Status: Active Protocol: Document 05/23/24 08:04 [facility] (Rec: 05/23/24 08:12 [facility] [id number]) OT- Subjective Occupational Therapy Visit Type Type Initial Evaluation Visit Start Time 07:24 Visit Stop Time 08:04 Occupational Therapy Visit Comments Patient Comments Pt agreed to get dressed. Patient/Caregiver Goals TO go home. OT Pain Assessment Pain When Pain Assessed At Rest Pain Present Pain Present Denied Pain M4 OT- IP ADL's Start: 05/23/24 08:00 Freq: Status: Active Protocol: Document 05/23/24 08:04 [facility] (Rec: 05/23/24 08:12 [facility] [id number]) OT VLM-Dezz-Afhmdwr General Evaluation Self-Feeding Ability Independent OT ADL-Grooming Comments OT Grooming Comments Pt states did prior. OT ADL-Oral Care Comments Oral Care Comments Pt states did prior. OT ADL-Dressing General Eval Upper Body Dressing Ability Independent Lower Body Dressing Ability Moderate Assistance Areas Needing Assistance Socks Comments OT Dressing Comments At this time, pt will need assist with her socks and able to practice use of the line installer repairer for LB dressing needs. Educated to dress the LLE first and take out last. OT ADL-Toileting General Evaluation Toileting Ability Independent OT ADL-Bathing Comments OT Bathing Comments Suggested pt to use a shower chair at home. Pt educated to dressing/bandage care needs while showering . M5 OT- IP IADL's Start: 05/23/24 08:00 Freq: Status: Active Protocol: Document 05/23/24 08:04 [facility] (Rec: 05/23/24 08:12 [facility] [id number]) OT-Instrumental Activities of Daily Living Deficits IADL Deficits Identified Deficits Home Safety Awareness Awareness of Need for Assistance at Home Good Awareness Ability to Problem Solve Emergency Able to Problem Solve Situations Meal Preparation Meal Preparation Caregiver Provides Assist Theoretical Physicist Theoretical Physicist Caregiver Provides Assist M6 OT- IP Functional Cognition Start: 05/23/24 08:00 Freq: Status: Active Protocol: Document 05/23/24 08:04 [facility] (Rec: 05/23/24 08:12 [facility] [id number]) Cognitive Factors Limiting Selfcare Function Cognitive Ability Level of Alertness Alert Patient Orientation Name,Age,Birthday,Month,Date, Year,Day of Week,Place, Situation Attention Span Ability Capable of Focused Attention, Capable of Sustained Attention Ability to Follow Commands Able to Follow One Step Commands Cognitive Comments Cognitive Assessment Comments Pt able to follow commands for ADL and mobility needs. OT- Vision and Hearing OT- Hearing Assessment OT- Hearing Assessment WFL OT- Vision Assessment Visual Attentiveness WFL Occular Pursuits WFL Vision Assessment Comments Pt wears driving glasses. M7 OT- IP Mobility and Balance Start: 05/23/24 08:00 Freq: Status: Active Protocol: Document 05/23/24 08:04 [facility] (Rec: 05/23/24 08:12 [facility] [id number]) OT- Bed Mobility Assessment Supine to Sit Supine to Sit Assist Standby Assistance Sit to Supine Sit to Supine Assist Standby Assistance, educated to use gait belt or cane to assist her LLE to the edge of the bed. OT-Transfer Assessment Sit to and From Stand Sit to and from Stand Standby Assistance Transfers Transfer Ability Standby Assistance Technique Transfer Destination Bed,Chair Transfer Technique Stand Step Pivot Devices Transfer Assistive Devices None,Standard Walker Comments Mobility Comments Pt SBA with all mobility needs . VC to push up from the bed initially. OT- Balance Assessment Sitting Balance and Reactions Static Sitting Balance Ability Normal Dynamic Sitting Balance Ability Normal Standing Balance and Reactions Static Standing Balance Ability Good Dynamic Standing Balance Ability Good M8 OT- IP Objective Assessments Start: 05/23/24 08:00 Freq: Status: Active Protocol: Document 05/23/24 08:04 [facility] (Rec: 05/23/24 08:12 [facility] [id number]) OT Gross Range of Motion Upper Extremity Range of Motion Assessment Within Functional Limits OT Strength Upper Extremity Strength Assessment Within Functional Limits M9 OT- IP Assessment and Plan Start: 05/23/24 08:00 Freq: Status: Active Protocol: Document 05/23/24 08:04 [facility] (Rec: 05/23/24 08:12 [facility] [id number]) OT Summary Assessment and Plan Potential Rehabilitation Potential Excellent Analytic Complexity at Evaluation Low Summary OT Impairments Pain,Balance,Functional Mobility,Dressing,Toileting, Bathing,Toilet Transfers, Shower Transfers Progress Towards Goals Progressing Toward Goals Assessment Summary Pt low complexity and main barriers are steps and will need assist for her socks and showering at this time. Pt states to get a shower chair. Pt to go home with her to assist when medically stable. Goals Dressing Goal Minimal Assistance Toileting Goal Independent Bathing Goal Standby Assistance Toilet Transfer Goal Independent Shower Transfer Goal Standby Assistance Days to Meet Goals 2 Frequency of Treatment Frequency Of Treatment Once a Day Treatment Plan OT Treatment Plan ADL Training,Functional Mobility,Patient/Family Education,Discharge Planning Discharge Recommendations OT Discharge Recommendations Home with Assistance, Outpatient PT Home Equipment Needs shower chair Transportation Needs at Discharge Private Vehicle
[2024-05-23 08:00] VITALS: BP 116/61; PULSE 80; RESP 18; TEMP 36.1; O2SAT 99
--- NOTE | 2024-05-23 08:01 | PM.DS.1 ---
History of Present Illness History of Present Illness Chief complaint: [facility] [place] Narrative: Lila is a pleasant 73 year old female who is POD#1 s/p L total hip arthroplasty by Dr. Manzano. This morning she reports she is feeling very good and is hopeful to d/c to home today, she lives on [facility] and [place] today. She is urinating well w/o issue, has worked w/ OT and is having no issues ambulating safely w/ her walker. She lives at home w/ her who is willing and able to aid in her post-op care. Her pain is mild and well controlled w/ Tylenol alone today. She has post-op pain medication at home already. She has PT scheduled at [facility] as well. Denies fever, chills, chest pain, SOB, nausea, vomiting. Operative Date/Time/Diagnoses Date of procedure: 05/22/24 Time of procedure: 11:00 Pre-op diagnosis: Left hip OA Post-op diagnosis: same Procedure & Clinicians Procedure: Left total hip arthroplasty anterior approach Same procedure as scheduled: Yes Indications: The patient has had progressively worsening left hip pain with radiographic changes consistent with arthritis. Non-operative management has failed and the patient has requested total hip replacement. The risks, benefits and alternatives to surgery were discussed with the patient prior to proceeding. Risks discussed included, but were not limited to, failure to relieve pain, leg length discrepancy, dislocation, stiffness, infection, nerve damage, deep venous thrombosis, pulmonary embolism, stroke, coma, heart attack, permanent paralysis and , as well as the potential need for eventual revision of the prosthetic. Surgeon: Yumiko Manzano [employer] Systems Integrator: Logan Monroy Anesthesia Type: General and Spinal Discharge Providers Provider Discharge Date: 05/23/24 Primary care physician: Serg Lewis MD Consults: 05/22/24 06:00 Consult to Anesthesiology Routine Comment: Consulting Provider: Anesthesiologist Reason for consultation: Regional block for post operative pain control 05/22/24 13:59 Consult to Discharge Planning Routine Comment: Consult to Occupational Therapy Evaluate & Treat Comment: Physician Instructions: Evaluate and treat Consult to Physical Therapy Evaluate & Treat Comment: Physician Instructions: post op ALYSSA protocol Discharge provider: Lauryn Spence PA-C Summary Hospital Course Discharge Diagnosis: stable s/p left anterior total hip arthroplasty Hospital Course: Relatively uncomplicated hospital course. She did require some discharge coordination as patient lives [place] [address] and needed to catch a [place] home. Exam Vital Signs (past 8 hours): - 05/23/24 00:55 Temperature 98.4 F Pulse Rate 78 Respiratory Rate 18 Blood Pressure 118/67 Pulse Oximetry 96 Oxygen Flow Rate 0 Oxygen Delivery Method Room Air Oxygen Flow Rate 0 Narrative Exam Narrative: Patient walking around the room comfortably during our interview today. No acute distress. AOx3. Grossly normal alignment of the LLE, no significant swelling. 5/5 strength with DF, PF, EHL bilaterally. Gross sensation intact throughout bilateral lower extremities. Calves soft and non-tender bilaterally. Brisk capillary refill, pulses intact. Post-surgical Aquacel dressing clean, dry and intact over the left hip with mild distal drainage. Objective Labs 05/23/24 05:10 Labs: Laboratory Results - last 24 hr 05/23/24 05:10 Hgb 10.9 L Hct 32.3 L PFSH Medical History (Updated 05/18/24 @ 08:14 by Serg Lewis MD) Other insect allergy status Post-traumatic osteoarthritis of right hip Osteoporosis Hypercalcemia Primary hyperparathyroidism Hyperthyroidism Graves disease Post menopausal problems Psoriasis Murmur Hip pain, right Primary localized osteoarthrosis of pelvic region Surgical History (Updated 05/09/24 @ 12:37 by Stormy Lemos RN) History of total right hip arthroplasty (02/2018) History of bilateral tubal ligation History of tonsillectomy Social History household members: spouse Smoking Status: Never smoker alcohol intake: former Discharge Assessment & Plan Assessment and Plan Assessment: Stable status post left anterior total hip arthroplasty Plan of Treatment: 1) Plan to discharge to home today with on 9 am ferr. 2) Continue multimodal pain management with ice to the hip for additional pain control. 3) ASA b.i.d. for DVT prophylaxis. 4) Start outpatient physical therapy to work on range of motion and mobility. WBAT, maintain anterior hip precautions. 5) Keep dressing intact, clean, dry until 2 week postop appointment. No soaking the incision site in pools or tubs. No topical ointments or creams to the incision site. 6) Follow up at [facility] in 2 weeks for a postop appointment and wound check. All patient's questions were answered, they demonstrates understanding and are in agreement with the plan. Call our office if any questions or concerns arise. Discharge Plan Discharge Plan Patient Disposition: Home Discharge orders & Medications Discharge Orders: Discharge (Order); Ordered 05/23/24 Ordered By: Lauryn Spence Prescriptions: New acetaminophen 325 mg Tablet 650 mg PO Q6H PRN (Reason: Fever/Mild Pain (1-3)) Qty: 90 0RF aspirin 81 mg Tablet,Delayed Release (Dr/Ec) 81 mg PO BID Qty: 90 0RF ibuprofen 400 mg Tablet 400 mg PO Q4H PRN (Reason: Pain, Mild (1-3)) Qty: 30 0RF ondansetron 4 mg Tablet,Disintegrating 4 mg PO Q4HR PRN (Reason: Nausea) Qty: 10 0RF oxycodone 5 mg Tablet 5 mg PO Q4-6H PRN (Reason: Pain, Moderate (4-6)) Qty: 30 0RF docusate sodium 100 mg Capsule 100 mg PO BID Qty: 30 0RF Continued chlorpheniramine maleate 4 mg Tablet 4 mg PO DAILY docosahexaenoic acid-epa Capsule 1 cap PO BID tretinoin 0.1 % cream 1 applic topical BEDTIME Qty: 45 3RF Follow up/Referrals: Yumiko Manzano MD [Physician] - 06/01/24 4:00 pm (Appt:06/01 @ 4:00 with Natividad URIARTE @ [facility] ) Serg Lewis MD [Primary Care Provider] - Diet/Activity/Treatments Diet: Diet as Tolerated Activity: WBAT, anterior hip precautions. Cold/Heat Therapy: Ice to the hip for additional pain control. Skin/Wound/Dressing Care Report to your healthcare provider any signs of infection, such as:: chills, fever, night sweats, unusual drainage and unusual redness Dressing: Keep dressing intact, clean and dry until 2 week post-op appointment. No soaking the incision site in pools or tubs. No topical ointments or creams to the incision site. Visit Report/Discharge Packet Instructions: DI for Hip Replacement, DI for Prescription Opioid Use Stand Alone Forms: Patient Portal/API Discharge Data Primary Care Provider: Serg Lewis Attending Provider: Yumiko Manzano
[2024-05-23] MEDS: DOCUSATE 100 MG CAPSULE PO (08:22)
[2024-05-23] MEDS: IBUPROFEN 400 MG TABLET PO (08:22)
[2024-05-23] MEDS: ASPIRIN EC 81 MG TABLET PO (08:22)
--- NOTE | 2024-05-23 08:45 | PT.IIE ---
Current Diagnoses Unilateral primary osteoarthritis, left hip (05/22/24) Surgery Performed Operation Date: 05/22/24 10:45 Actual Procedures p Total Hip Arthroplasty/Anterior Approach(Left) - Yumiko Manzano MD Surgical History (Last Updated 05/09/24 @ 12:37 by Stormy Lemos RN) History of bilateral tubal ligation History of tonsillectomy History of total right hip arthroplasty (02/2018) Medical History (Last Updated 07/15/23 @ 06:50 by Serg Lewis MD) Graves disease Hip pain, right Hypercalcemia Hyperthyroidism Murmur Osteoporosis Other insect allergy status Post menopausal problems Post-traumatic osteoarthritis of right hip Primary hyperparathyroidism Primary localized osteoarthrosis of pelvic region Psoriasis Physical Therapy Inpatient Evaluation/Re-Eval M1 PT/OT-IP Prior Functional Status Start: 05/23/24 09:26 Freq: NEEDED Status: Discharge Protocol: Document 05/23/24 08:45 AB (Rec: 05/23/24 09:28 AB [id number]) Medical Review Prior Functional Status Medical History Reviewed Yes Communication able to make needs known Mobility and Gait pt stated that she is independent with all mobilities and ambulation without AD Activities of Daily Living and IADL's per OT note: Able to do all ADL and IADL needs but had pain. Social History Household Members spouse Living Arrangements House Number of Floors (Floors) Two Floors Number of Stairs To Enter/Railing? 3 platform steps to enter pt will stay on main level of the house Home Environment Standard Height Toilet,Walk in Shower Home Equipment Straight Cane,Bedside Commode, Long Handled Shoe Horn,Education Adviser ,Grab Bars In Shower Additional Social History Comment Pt has a standard walker. M2 PT-IP Current Condition Start: 05/23/24 09:26 Freq: NEEDED Status: Discharge Protocol: Document 05/23/24 08:45 AB (Rec: 05/23/24 09:30 AB [id number]) Physical Therapy Current Condition Current Condition Evaluation Date 05/23/24 Treatment Diagnosis s/p L ALYSSA anterior; difficulty in walking Onset Date 05/22/24 M3 PT-IP Subjective Start: 05/23/24 09:26 Freq: NEEDED Status: Discharge Protocol: Document 05/23/24 08:45 AB (Rec: 05/23/24 09:30 AB [id number]) Subjective Physical Therapy Visit Type Type Initial Evaluation Visit Start Time 08:45 Visit Stop Time 09:25 Number of AUTOMATIC TOE LASTER Visits 0 Physical Therapy Visit Comments Patient Comments agreeable to do PT Therapy Pain Assessment Pain When Pain Assessed At Rest Pain Present Pain Present Pain Reported Location Right Hip Intensity 3 Scale Used Numeric (0 - 10) Pain Management Techniques Apply Cold,Distraction, Modification of Treatment,Re- positioning,Timing of Activity with Medications M4 PT-IP Mobility and Gait Start: 05/23/24 09:26 Freq: NEEDED Status: Discharge Protocol: Document 05/23/24 08:45 AB (Rec: 05/23/24 12:50 AB [id number]) PT-Bed Mobility Assessment Supine to Sit Supine to Sit Standby Assistance Sit to Supine Sit to Supine Minimal Assistance PT-Transfer Assessment Sit to and From Stand Sit to and from Stand Standby Assistance,Contact Guard Assistance,1 Person Assistance,Use of Upper Extremities Equipment Transfer Assistive Device Gait Belt,Front Wheeled Walker Orthotic/Prosthetic Devices or Brace: No Transfers Transfer Destination Bed Transfer Technique ambulated Transfer Ability Level of Assist Standby Assistance,Contact Guard Assistance,Use of Upper Extremities Comments Mobility Comments pt sitting on the chair and agreeable to do PT. spouse in room with pt. obtained PLOF and home setup. reviewed anterior hip precautions. pt completed sit to stand from chair CGA and ambulated to EOB ~ 20 ft using fWW SBA to cGA. completed sit to supine min A with LE elevation. supine to sit SBA with cues for techniques. caregiver training conducted. educated pt's spouse on how to use safety belt and how to assist pt. spouse was able to put safety belt on pt. educated pt and spouse on stair climbing. spouse assisted pt with sit to stand and ambulation towards platform step using FWW. pt completed up/down platform step using FWW CGA with spouse assisting but with PT providing cued. pt completed again and with spouse assisting and cueing when needed. pt ambulated in the hallway using FWW SBA to CGA ~ 75 ft. pt ambulated back to her room. requested to use the toilet and ambulated to the toilet using fWW SBA. pt and spouse without further concerns. left pt with spouse. nurse informed. Gait Assessment Gait Gait Assistance Required: Standby Assistance,Contact Guard Assist Distance (Feet) 75 Able to Maintain Weight Bearing Status Yes During Gait Assistive Devices Assistive Device Gait Belt,Front Wheeled Walker Orthotic/Prosthetic Devices or Brace: No Gait Deviations General Gait Pattern Antalgic Factors Limiting Gait Function Factors Limiting Gait Function Decreased Activity Tolerance, Decreased Strength,Limited Range of Motion,Pain,Poor Balance,Poor Safety Awareness Stair Climbing Assessment Evaluation Level of Assist On Stairs Contact Guard Assistance Devices Stair Climbing Assistive Devices Front Wheel Walker Technique/Endurance Stair Climbing Direction Ascend and Descend Stair Climbing Technique Step to Step Number of Steps Climbed 1 Query Text: Stair Climbing Set # Repetitions (reps) 2 PT-Balance Assessment Sitting Balance and Reactions Static Sitting Balance Ability Normal Dynamic Sitting Balance Ability Good Standing Balance and Reactions Static Standing Balance Ability Good Dynamic Standing Balance Ability Fair Device Used FWW M5 PT-IP Objective Assessments Start: 05/23/24 09:26 Freq: NEEDED Status: Discharge Protocol: Document 05/23/24 08:45 AB (Rec: 05/23/24 12:50 AB [id number]) Orientation Orientation/Cognition Level of Alertness Alert Orientation Name,Age,Birthday,Month,Date, Year,Day of Week,Place, Situation Language Function Ability No Deficits Noted Safety Awareness Understands Safety Issues Memory Description No Deficits Noted Gross Range of Motion Lower Extremity ROM Assessment Within Functional Limits Strength Lower Extremity Strength Assessment Left Impaired Hip 3-/5 Knee 4-/5 Coordination Assessment Gross Coordination Gross Coordination WNL Sensation Assessment Sensation Gross Sensation WNL Muscle Tone Muscle Tone WNL Yes M6 PT-IP Treatment Start: 05/23/24 09:26 Freq: NEEDED Status: Discharge Protocol: Document 05/23/24 08:45 AB (Rec: 05/23/24 12:50 AB [id number]) Physical Therapy Treatment Education Education Provided Precautions,Weight Bearing Status,Post-Op Packet,Safety M7 PT-IP Assessment and Plan Start: 05/23/24 09:26 Freq: NEEDED Status: Discharge Protocol: Document 05/23/24 08:45 AB (Rec: 05/23/24 12:50 AB [id number]) PT Summary Assessment and Plan Potential Rehabilitation Potential Fair Status of Condition at Evaluation Stable Summary Impairments Pain,ROM,Strength,Balance, Coordination,Sensation,Tone, Cognition,Bed Mobility, Transfers,Gait,Activity Tolerance Assessment Summary pt is a 73 y/o F s/p L ALYSSA anterior approach POD 1. pt with L hip anterior precautions and is WBAT. pt requiring SBA to CGA with mobility using FWW. caregiver training conducted and spouse was able to safely assist pt with mobility. pt may go home when medically stable. Goals Bed Mobility Goal Independent Transfer Goal Independent,Front Wheeled Walker Gait Goal Independent,Front Wheel Walker Gait Distance 300 Other Goals up/down 3 platform steps using FWW mod I Days to Meet Goals 5 Frequency of Treatment Frequency Of Treatment Twice a Day Treatment Plan Physical Therapy Treatment Plan Bed Mobility Training,Transfer Training,Gait Training, Therapeutic Exercise,Balance Retraining,Post Op Education, Discharge Planning,Hot or Cold Pack,Neuromuscular Re-ed, Coordination Retraining,Manual Therapy Precautions Anterior Hip Precautions No Hip Extension,No Hip External Rotation Weight Bearing Status Weight Bearing Status Weight Bear as Tolerated Allowed Weight Bearing Amount (enter % LLE WBAT or #) (%) Recommendations To Nursing Amount of Assist Needed 1 Person Assist Discharge Recommendations PT Discharge Recommendations Home with Assistance, Outpatient PT Transportation Needs at Discharge Private Vehicle
[2024-05-23] MEDS: OXYCODONE IR 5 MG TABLET PO (09:30)
--- NOTE | 2024-05-23 11:14 | CM.DANOTE ---
Initial DCP Assessment Note Pt is a 73 yo female, resident of [facility], POD#1 from left ALYSSA by Dr Manzano PCP: Serg Lewis Payer: M[employer] Reviewed chart, pt discussed in multidisciplinary rounds this morning. Therapy has cleared pt for return home w/family to assist and pt has planned for home, DC order from Ortho has already been initiated this morning. No barriers identified at this time to patient's safe discharge home w/family to assist; close outpatient f/u recommended. CM team will plan to follow closely in case any DC needs or concerns arise. CECILIA Argueta Discharge Planning/Care Management CM Discharge Assessment Start: 05/23/24 11:09 Freq: Status: Active Protocol: Document 05/23/24 11:09 STEVE (Rec: 05/23/24 11:14 STEVE [id number]) Discharge Planning Assessment Assigned Qual Field Manager CECILIA Skinner DPOA/Assigned Designee Name Aba Zhou - Contact Information [phone] Advance Directives? Yes Advance Directives on File Yes History Provided By Patient,Significant Other Prior Living Arrangements House Household Members spouse Type of transporation used prior to Drives own vehicle admit Independent with ADL's Yes Is patient alert and oriented? Yes Barriers to Discharge No Discharge Plan Home Transportation Arrangement Family Referrals Initiated None needed
== END 2024-05-23 09:46 | disposition home or self-care (01) ==
LOC: OR 08:31 → AC 08:36
PROVIDERS: PCP Family Medicine; Referring Provider Orthopaedic Surgery; Visit Provider Orthopaedic Surgery
PROC: (CPT 27130; principal; 2024-05-22 10:45)
DX: M16.12 Unilateral primary osteoarthritis, left hip (principal); M25.752 Osteophyte, left hip
CPT/HCPCS: 27130; 36415; 73502; 73503; 76000; 85014; 85018; 97161; 97165; 97530; 97535; C1776; C9290; J0171; J0690; J1100; J2250; J2405; J2704; J3010

== ENCOUNTER → 2025-01-14 10:50 | Outpatient (CLI) | payer MEDICARE, SELFPAY ==
[2024-05-22 13:52] VITALS: BMI 19.9
[2025-01-14 20:04] LABS: Cholesterol 190 mg/dL (140-199); Glucose 95 mg/dL (70-99); HDL Cholesterol 106 mg/dL (40-60); Triglycerides 90 mg/dL (35-150)
[2025-01-15 17:11] LABS: Hep C Virus Ab w/Reflex Quant NEGATIVE s/c (NEGATIVE)
== END ==
PROVIDERS: PCP Family Medicine; Visit Provider Family Medicine
DX: Z13.1 Encounter for screening for diabetes mellitus (principal); Z13.6 Encounter for screening for cardiovascular disorders; E21.3 Hyperparathyroidism, unspecified; E83.52 Hypercalcemia; Z11.59 Encounter for screening for other viral diseases
CPT/HCPCS: 80061; 82310; 82947; 83970; 86803